=== PATIENT | female | born 2005 | race Caucasian/White ===

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

== ENCOUNTER 2025-08-15 09:28 | Emergency (ER) | payer OTHER, SELFPAY ==
[2025-08-15 09:33] VITALS: BP 114/53; PULSE 92; RESP 18; TEMP 36.4; O2SAT 100
--- NOTE | 2025-08-15 09:49 | ED.GENADULT ---
HPI - General Adult General Chief complaint: Upper Respiratory Infection Stated complaint: Runny Nose/Fever/Headache/Sore Throat Source: patient Mode of arrival: ambulatory Limitations: no limitations History of Present Illness HPI narrative: Patient presents for evaluation of sick symptoms for last 2 days. Symptoms include fever, sore throat, cough, brain fog, and nausea. No chills, vomiting, diarrhea, shortness of breath. Her boyfriend has similar symptoms but did not undergo a medical exam. She is not taking any medications to assist with her symptoms. She does vape. Related Data Allergies Allergy/AdvReac Type Severity Reaction Status Date / Time No Known Drug Allergies Allergy Unknown Unknown Verified 08/15/25 09:40 Review of Systems Review of Systems: CONSTITUTIONAL: Reports fever. Denies chills, or sweats. EYES: Denies visual changes, redness, or discharge. ENT: reports sore throat and brain fog. Denies otalgia. CARDIOVASCULAR: Denies chest pain, palpitations, or edema. RESPIRATORY: Reports cough. Denies shortness of breath GASTROINTESTINAL: Reports nausea. Denies abdominal pain, vomiting, or diarrhea. GENITOURINARY: Denies dysuria or hematuria. SKIN: Denies rash or itching. MUSCULOSKELETAL: Denies back pain, joint pain, or myalgia. NEUROLOGIC: Denies headache, numbness, dizziness, or weakness. PSYCHIATRIC: Denies anxiety or depression. PMFSH Past Medical History Medical History Strep throat Asthma Surgical History Surgical History No pertinent past surgical history Family History Family History Mother Family history non-contributory Social History Social History Smoking status: Current every day smoker Tobacco type: e-cigarettes/vaping Alcohol intake: unknown Substance use type: does not use Living arrangements: with family Gender identity (if verbalized by the patient): Female Exam Narrative: GENERAL: Well-appearing, well-nourished, and in no acute distress. HEAD: Normocephalic, atraumatic. EYES: PERRLA and EOMI. ENT: Nares clear, no rhinorrhea or epistaxis. Mucous membranes moist. Oropharynx without tonsillar hypertrophy exudate or other lesions however there is posterior pharyngeal erythema.. Bilateral TMs pearly reyes nonbulging NECK: Supple. No adenopathy or masses. No carotid bruits or JVD CHEST: Clear to auscultation. No respiratory distress. No wheezes rales or rhonchi HEART: Regular rate and rhythm. No murmur heard. Normal peripheral pulses. ABDOMEN: Soft, nontender, nondistended, normal active bowel sounds. EXTREMITIES: Normal range of motion. No edema. SKIN: Warm, dry, no rash. NEURO: No focal deficits. Alert and oriented x3. PSYCH: Normal mood and affect. Course Course Emergency Course: This is a 20-year-old female presented for evaluation of sick symptoms. Strep, COVID, influenza were all negative. Exam consistent with acute viral syndrome. She indicated her primary purpose and coming today was obtain a note to excuse her from work. She was provided with this letter. She should follow-up with her primary care provider. Increase hydration. Hcab-sra-ffmmqqo agents for symptom management. Go to the ER for worsening symptoms. Patient is in agreement with plan of care. Level of Care: Express Care Visit Vital Signs Vital signs: Vital Signs Temperature 36.4 C 08/15/25 09:33 Pulse Rate 92 08/15/25 09:33 Respiratory Rate 18 08/15/25 09:33 Blood Pressure 114/53 L 08/15/25 09:33 Pulse Oximetry 100 08/15/25 09:33 Oxygen Delivery Room Air 08/15/25 09:33 Temperature 36.4 C 08/15/25 09:33 Pulse Rate 92 08/15/25 09:33 Respiratory Rate 18 08/15/25 09:33 Blood Pressure 114/53 L 08/15/25 09:33 Pulse Oximetry 100 08/15/25 09:33 Oxygen Delivery Room Air 08/15/25 09:33 MDM Differential Diagnosis Differential Diagnosis: COVID versus flu versus strep versus other viral illness Lab Data Labs: Lab Results 08/15/25 Range/Units 09:56 POC Influenza A Ag Negative (Negative) POC Influenza B Ag Negative (Negative) POC Grp A Strep Screen Negative (Negative) Discharge Plan Discharge Clinical Impression: Acute viral syndrome Patient Disposition: Home Condition: Stable Instructions: Antibiotic Form, Viral Syndrome (ED) Patient Language: Namibian Prescriptions: New albuterol sulfate [Ventolin HFA] 90 mcg/actuation HFA aerosol inhaler 2 puff inhalation QID Qty: 8.5 0RF No Action albuterol sulfate 90 mcg/actuation HFA aerosol inhaler 2 puff inhalation QID PRN (Reason: shortness of breath or wheezing) 30 Days Qty: 8.5 0RF Follow-up/Referrals: Axel Su MD [Physician, Family Practice] Stand Alone Forms: Work/School Release IP Time of Disposition: 10:29
[2025-08-15 09:58] LABS: EDINFLUASCREEN Negative (Negative); EDINFLUBSCREEN Negative (Negative); EDSTREPNEGPOS1 Negative (Negative)
--- OUTSIDE RECORDS SUMMARY | 2025-08-15 10:06 | XMS_ITS | Clinical Summary ---
Author Organization [facility] Address [address] [place] [address] Phone Care Team Providers Care Cycle Touring Guide Name Role Phone Te Islas MD Primary Care Provider [phone] Allergies No known active allergies Medications albuterol [...] Comments Blood Pressure 121/85 11/21/2023 3:04 PM SALES PROMOTION OFFICER Pulse 79 11/21/2023 3:04 PM SALES PROMOTION OFFICER Temperature 37 C (98.6 F) 11/21/2023 3:04 PM SALES PROMOTION OFFICER Respiratory Rate 17 11/21/2023 3:04 PM SALES PROMOTION OFFICER Oxygen Saturation 100% 11/21/2023 3:04 PM SALES PROMOTION OFFICER Inhaled Oxygen Concentration - - Weight 65.8 kg (145 lb) 11/21/2023 1:58 PM SALES PROMOTION OFFICER Height 157.5 cm (5' 2) 11/21/2023 1:58 PM SALES PROMOTION OFFICER Body Mass Index 26.52 11/21/2023 1:58 PM SALES PROMOTION OFFICER Plan of Treatment Health Maintenance Due Date Last Done Comments Hepatitis C Virus (HCV) Screening 2005 Influenza Immunization (#1) 2025 11/0 02/2020, 06/17/2012, 06/17/2012, Additional history exists SARS-COV-2 Immunization ( season) 2025 04/11/2021, 03/06/2021 Respiratory Syncytial Virus (RSV) Immunization [...] 05/11/2009, 2005, Additional history exists Varicella Immunization Completed 05/11/2009, 2005 DTaP/Tdap/Td Immunization Discontinued 2015, 05/11/2009, 05/11/2009, Additional history exists TdaP Immunization Completed 04/14/2016 Human Papillomavirus (HPV) Immunization Completed 01/28/2021, 09/11/2020, 07/20/2020 Meningococcal Immunization (ACWY) Completed 01/28/2021, 04/14/2016 Meningococcal B Immunization Completed 03/01/2021, 01/28/2021 Rotavirus Immunization Aged Out No lo nger eligible based on patient's age to complete this topic Insurance MEDICAID [employer]ID [employer] Care Teams Cycle Touring Guide Relationship Specialty Start Date End Date Te Islas MD [address] [place] [address] PCP - General Pediatrics 03/05/16
--- OUTSIDE RECORDS SUMMARY | 2025-08-15 10:06 | XMS_ITS | Clinical Summary ---
Author Organization [facility] Address [address] [place] [address] Care Team Providers Care Paediatric Physiotherapist Name Role Phone Unavailable Primary Care Provider Unavailabl e Source Comments [facility],non-owned Affiliates and Associated Physician Practices is amultiple site organization consisting of ambulatory clinics and hospital sitesin [place], [place], [place] and [place]. This disclosure is being madepursuant to the Care Everywhere program and may not contain all information available regarding this patient. Last updated 18.[facility] Allergies No known active allergies Medications * Be aware that medications may not be up to date on this document. Alwaysverify current medications with the patient. No known medications Active Problems Problem Noted Date Diagnosed Date Abnormal findings on screening 0 Social History Tobacco Use Types Packs/Day Years Used Date Smoking Tobacco: Never Smokeless Tobacco: Never Alcohol Use Standard Drinks/Week Comments No 0 (1 standard drink = 0.6 oz pur e alcohol) Comments Unknown Sex and Gender Information Value Date Recorded Sex Assigned at Not on file Legal Sex Female 5:44 AM GUM SPRAYER Gender Identity Not on file Sexual Orientation [...] 1:00 PM CDT Height 109.5 cm (3' 7.11) 03/29/2010 1:00 PM CD T Body Mass Index 19.02 03/29/2010 1:00 PM CDT Plan of Treatment Health Maintenance Due Date Last Done Comments HIV SCREENING 01/15/2020 HPV VACCINE (1 - 3-dose series) 01/15/2020 CHLAMYDIA/GONORRHEA SCREENING 2021 MENINGOCOCCAL (Group B) VACC INE SHARED DECISION-MAKING (1 of 2 - Standard) 2021 HEPATITIS C SCREENING 01/10/2023 DTAP/TDAP/TD VACCINES (1 - Tdap) 01/15/2024 HEPATITIS B VACCINE (1 of 3 - 19+ 3-dose series) 01/15/2024 DEPRESSION SCREENING 09/14/2024 COVID-19 VACCINE (1 - 2024-2 6 season) 2025 INFLUENZA VACCINE (#1) 2025 ZOSTER VACCINE (1 of 2) 2055 HIB VACCINE Aged Out No longer eligi ble based on patient's age to complete this topic MENINGOCOCCAL GROUPS A/C/Y/W VACCINE Aged Out No longer eligible b ased on patient's age to complete this topic PNEUMOCOCCAL VACCINE Aged Out No long er eligible based on patient's age to complete this topic Insurance [facility] MEDICAID - OUT OF STATE
== END 2025-08-15 10:33 | disposition home or self-care (01) ==
PROVIDERS: Emergency Provider Nurse Practitioner
DX: B34.9 Viral infection, unspecified (principal); F17.290 Nicotine dependence, other tobacco product, uncomplicated; J45.909 Unspecified asthma, uncomplicated
CPT/HCPCS: 87081; 87804; 87880; 99213; G0463